=== PATIENT | female | born 1980 | race Caucasian/White ===

== ENCOUNTER 2024-02-01 08:38 | Emergency (ER) | payer MEDICAID ==
[~2024-02-01] VITALS: Ht 157.5 cm; Wt 59.0 kg
[2024-02-01 08:59] VITALS: O2SAT 100
[2024-02-01] MEDS: ONDANSETRON HCL 4MG/2ML INJ IM ONE (09:09)
[2024-02-01] MEDS: OXYCODONE HCL/ACETAMINOPHEN 5/325MG TABLET PO ONE (12:12)
[2024-02-01 12:57] LABS: HEMATOCRIT 36.7 % (36.0-48.0); HEMOGLOBIN 12.2 g/dL (12.0-16.0); MEAN CORPUSCULAR HEMOGLOBIN 29.8 pg (28.0-32.0); MEAN CORPUSCULAR HGB CONC 33.4 g/dL (31.0-37.0); MEAN CORPUSCULAR VOLUME 89.5 fL (81.0-99.0); PLATELET 232 x1000/uL (130-400); RED CELL DISTRIBUTION WIDTH 13.6 % (11.6-14.6); WHITE BLOOD COUNT 8.7 x1000/uL (4.5-11.0)
[2024-02-01 13:28] VITALS: BP 123/79; PULSE 76; RESP 16; TEMP 36.72516; O2SAT 100
== END 2024-02-01 14:04 | disposition home or self-care (01) ==
LOC: ER 08:38
DX: R04.0 Epistaxis (principal); K59.00 Constipation, unspecified; Z87.440 Personal history of urinary (tract) infections; Z88.0 Allergy status to penicillin
CPT/HCPCS: 99284; 85027; 36415; 30901; 96372; J2405